=== PATIENT | male | born 1970 | race African-American/Black ===

== ENCOUNTER 2020-06-30 15:20 | Emergency (ER) | payer OTHER ==
[2020-06-30 15:27] VITALS: BP 183/98; PULSE 94; TEMP 98.4; BMI 41.3
== END 2020-06-30 17:55 | disposition home or self-care (01) ==
LOC: JERFT 15:20
DX: L03.116 Cellulitis of left lower limb (principal)
CPT/HCPCS: 73590-TC-LT-FY; 73610-TC-LT-FY; 73630-TC-LT; 99285-25